=== PATIENT | male | born 1980 | race Caucasian/White ===

== ENCOUNTER 2017-08-04 18:36 | Emergency (ER) | payer OTHER ==
[2017-08-04] MEDS ORDERED: TETANUS/DIPHTHERIA/PERTUSSIS 0.5 ML SYRINGE IM ONE (19:17)
--- NOTE | 2017-08-04 19:17 | ED Physician Documentation ---
PD HPI UPPER EXT INJURY - Stated complaint Stated Complaint: R HAND INJURY - Chief complaint Chief Complaint: Laceration - History obtained from History obtained from: Patient - History of Present Illness Location: Left, Hand (dorsum thenar area) Type of injury: Laceration (edge of sharp metal) Where injury occurred: Work Timing - onset: Today Timing - details: Abrupt onset, Still present Worsened by: Moving, Palpating, Other (it bled well after injury and despite direct pressure.) Associated symptoms: No: Weakness, Numbness, Tingling Similar symptoms before: Has not had sx before Recently seen: Not recently seen Review of Systems Skin: reports: Laceration (s) Neurologic: denies: Focal weakness, Numbness, Near syncope PD PAST MEDICAL HISTORY - Past Medical History Cardiovascular: None Respiratory: None Neuro: None Endocrine/Autoimmune: None - Present Medications Home Medications: Ambulatory Orders Medication Instructions Recorded Confirmed HYDROcod/ACETAM 5/325 [[facility] 5/325] 1 tab PO Q6H PRN #12 tablet 08/04/17 - Allergies Allergies/Adverse Reactions: Allergies Allergy/AdvReac Type Severity Reaction Status Date / Time No Known Drug Allergies Allergy Verified 08/04/17 18:45 PD ED PE NORMAL - Vitals Vital signs reviewed: Yes - General General: Alert and oriented X 3, Well developed/nourished - Derm Derm: Normal color, Warm and dry - Extremities Extremities: Other (left hand with 4 cm lac without FB that goes to fatty layer and just exposes dorsal muscle to thumb but not cut into it. Lac is lengthwise of 1st MC over dorsal thenar area. Venous bleeding when not having direct pressure. ) - Neuro Neuro: No motor deficit, No sensory deficit Results - Vitals Vitals: Vital Signs - 24 hr 08/04/17 08/04/17 08/04/17 18:45 18:57 19:19 Temperature 37.2 C 37.2 C Heart Rate 91 91 71 Respiratory 22 18 Rate Blood Pressure 137/105 H 137/105 H 141/86 H O2 Saturation 97 97 100 08/04/17 20:02 Temperature 37.2 C Heart Rate 70 Respiratory 18 Rate Blood Pressure 145/82 H O2 Saturation 97 Oxygen O2 Source Room air Procedures - Laceration (location) left hand posterior thenar Length in cm: 4 Wound type: Linear, Into subcut fat (and involves superficial vein with oozing blood when not direct pressure), Clean Neurovascular status: Sensory intact, Motor intact, Vascular intact Tendon involvement: Tendon intact. No: Tendon Injury Anesthesia: Lidocaine 1% with epi, Marcaine 0.5% Wound Preparation: Wound explored, To the base. No: FB identified Deep layer closure: Vicryl, size #-0 - enter number (4), # sutures - enter number (4 running sutures with one interrupted to ligate the vein and the bleeding completely stopped.) Skin layer closure: Nylon, Running, Size #-0 - enter number (4) Other: Patient tolerated well, No complications, Neurovascular intact, Dressing applied, Tetanus booster given Complexity: Intermediate PD MEDICAL DECISION MAKING - ED course Complexity details: considered differential, d/w patient Departure - Departure Disposition: 01 Home, Self Care Clinical Impression: Laceration of hand Qualifiers: Encounter type: initial encounter Foreign body presence: without foreign body Laterality: left Qualified Code(s): S61.412A - Laceration without foreign body of left hand, initial encounter Condition: Stable Record reviewed to determine appropriate education?: Yes Instructions: ED Laceration Hand Prescriptions: HYDROcod/ACETAM 5/325 [[place] 5/325] 1 tab PO Q6H PRN #12 tablet PRN Reason: Pain Comments: It is okay to wash and shower. Clean off the wound twice a day with soap and water, or peroxide and water. Apply some antibiotic ointment to it to keep it moist. Also to watch for signs of infection such as purulence, redness or increasing pain. Return to your primary care or the ER at the specified time for suture removal. Suture removal 10-12 days. Rest with minimal use of the hand for the first day or 2 and then start using the hand more after that. Avoid really hard gripping and pulling for a week. Tylenol or ibuprofen if needed for pain. At the hydrocodone and the first few days as needed. You did receive a tetanus booster today as well. Forms: Activity restrictions Discharge Date/Time: 08/04/17 20:30
[2017-08-04] MEDS ORDERED: IBUPROFEN 600 MG TABLET PO STA (19:28)
[2017-08-04] MEDS ORDERED: HYDROcod/ACETAM 5/325 MG TABLET PO STA (19:28)
[2017-08-04] MEDS ORDERED: HYDROcod/ACET 5/325 Prepack 6 PO STA (19:55)
[2017-08-04] MEDS ORDERED: BACITRACIN OINT TOP ONE (20:09)
[2017-08-04 20:12] VITALS: BP 145/82
== END 2017-08-04 20:30 | disposition home or self-care (01) ==
LOC: ED 18:36
DX: S61.412A Laceration without foreign body of left hand, initial encounter (principal); W26.8XXA Contact with other sharp object(s), not elsewhere classified, initial encounter; Y93.89 Activity, other specified; Y99.0 Civilian activity done for income or pay; Z23 Encounter for immunization
CPT/HCPCS: 12042; 90471; 90715; 99283; A9270